=== PATIENT | female | born 2000 | race Caucasian/White ===

== ENCOUNTER 2019-07-23 09:39 | Outpatient (REF) | payer OTHER, SELFPAY ==
[2019-07-27 11:17] LABS: Amphetamine 3606 ng/mL (Cutoff: 25); Amphetamines Interpretation Positive.; MDA (Ecstasy Metabolite) Negative ng/mL (Cutoff: 25); MDMA (Ecstasy) Negative ng/mL (Cutoff: 25); Methamphetamine Negative ng/mL (Cutoff: 25); Phentermine Negative ng/mL (Cutoff: 25); Pseudoephedrine/Ephedrine Negative ng/mL (Cutoff: 25)
== END 2019-07-23 09:59 ==
LOC: LBN 09:39
PROVIDERS: Visit Provider Nurse Practitioner Family
DX: F90.9 Attention-deficit hyperactivity disorder, unspecified type (principal)
CPT/HCPCS: 80324

== ENCOUNTER 2019-08-09 10:09 | Outpatient (REF) | payer OTHER, SELFPAY ==
[2019-08-13 18:35] LABS: SARS-CoV-2 RNA Undetected (Undetected); SARS-CoV-2 Specimen Source Nasopharynx
== END 2019-08-09 10:29 ==
LOC: LBN 10:09
PROVIDERS: Visit Provider Advanced Practice Midwife
DX: Z11.59 Encounter for screening for other viral diseases (principal)
CPT/HCPCS: U0003

== ENCOUNTER 2019-09-22 15:08 | Outpatient (REF) | payer OTHER, SELFPAY ==
[2019-09-25 08:29] LABS: SARS-CoV-2 RNA Undetected (Undetected); SARS-CoV-2 Specimen Source Nasopharynx
== END 2019-09-22 15:28 ==
LOC: LBN 15:08
PROVIDERS: Visit Provider Advanced Practice Midwife
DX: Z11.59 Encounter for screening for other viral diseases (principal)
CPT/HCPCS: U0003

== ENCOUNTER 2020-01-08 11:52 | Outpatient (REF) | payer OTHER, SELFPAY ==
[2020-01-10 02:02] LABS: Patient Race White; SARS-CoV-2 RNA Undetected (Undetected); SARS-CoV-2 Specimen Source Nasal
== END 2020-01-08 12:12 ==
LOC: LBN 11:52
PROVIDERS: Visit Provider Advanced Practice Midwife
DX: Z20.828 Contact with and (suspected) exposure to other viral communicable diseases (principal)
CPT/HCPCS: U0003

== ENCOUNTER 2020-08-30 15:00 | Outpatient (REF) | payer OTHER, SELFPAY ==
--- NOTE | 2020-08-30 14:00 | PAPFT_PTH ---
PATIENT: Lilo Whiting LOC: [facility] U#:[id number] AGE/SX: ROOM: RE08/30/[address]: Catrina Buenrostro : 2000 BED: DIS: 08/30/2020 SPEC #: [id number] RECD: 08/30/20 18:25 STATUS: BRUNILDA REJose Luis #: [id number] KOURTNEY: 08/30/20 14:[address]: Catrina Buenrostro DEPT: [facility] Cytology RECD BY: Kimberley Guzmán ENTERED: 08/30/20 18:26 SP TYPE: PAPFT OTHR DR: Unknown,Unknown Tissues: 1 - CX/ENDOCX FOR PAP SMEARS Procedures: PAP THIN PREP/[facility] Screening Comments: [id number] (CHLAMYDIA/GC)
[2020-08-31 19:39] LABS: Chlamydia Result Negative (Negative); GC Result Negative (Negative)
== END 2020-08-30 15:01 | disposition home or self-care (01) ==
LOC: LBN 15:00
PROVIDERS: Visit Provider Advanced Practice Midwife
DX: Z11.3 Encounter for screening for infections with a predominantly sexual mode of transmission (principal); Z12.4 Encounter for screening for malignant neoplasm of cervix
CPT/HCPCS: 87491; 87591; 88142

== ENCOUNTER 2024-01-12 13:22 | Outpatient (REF) | payer OTHER, SELFPAY ==
--- NOTE | 2024-01-12 13:00 | PAPFT_PTH ---
PATIENT: Lilo Whiting LOC: [facility] U#:[id number] AGE/SX: 23/F ROOM: RE01/12/[address]: Angelica Larson NP : 2000 BED: DIS: 01/12/2024 SPEC #: [id number] RECD: 01/12/24 17:47 STATUS: BRUNILDA REJose Luis #: [id number] KOURTNEY: 01/12/24 13:[address]: Angelica Larson NP DEPT: [facility] Cytology RECD BY: Kimberley Guzmán ENTERED: 01/12/24 17:47 SP TYPE: PAPFT OTHR DR: Unknown,Unknown Tissues: 1 - CX/ENDOCX FOR PAP SMEARS Procedures: PAP THIN PREP/[facility] Screening Comments: (CHLAMYDIA/GC)
[2024-01-13 12:43] LABS: Chlamydia Result Negative (Negative); GC Result Negative (Negative)
== END 2024-01-12 13:23 | disposition home or self-care (01) ==
LOC: LBN 13:22
PROVIDERS: Visit Provider Nurse Practitioner Women's Health
DX: Z12.4 Encounter for screening for malignant neoplasm of cervix (principal)
CPT/HCPCS: 87491; 87591; 88142